=== PATIENT | female | born 1990 | race Caucasian/White ===

== ENCOUNTER 2016-08-13 16:34 | Emergency (ER) | payer SELFPAY | END 2016-08-13 18:10 | disposition left against medical advice (07) | LOC: E/R 16:34 | DX: Z53.21 Procedure and treatment not carried out due to patient leaving prior to being seen by health care provider (principal) ==

== ENCOUNTER 2016-09-12 22:12 | Emergency (ER) | payer MEDICAID ==
[~2016-09-12] VITALS: Wt 46.5 kg
--- NOTE | 2016-09-13 00:30 | ERA ---
ER Documentation Chief Complaint Date/Time DATE: 09/13/16 TIME: 00:29 Chief Complaint Vomiting and 9 weeks HPI Patient presents for nausea and vomiting 2 weeks. Patient is 9 weeks . Patient denies bleeding or discharge from the vagina, abdominal cramping or previous loss. YAAKOV Sotelo helped with the translation. ROS All systems reviewed and are negative except as per history of present illness. Allergies Allergies: Coded Allergies: No Known Allergy (Unverified , 09/12/16) PMhx/Soc Medical and Surgical Hx: pt denies Medical Hx History of Surgery: Yes (appendectomy) Hx Alcohol Use: No Hx Substance Use: No Hx Tobacco Use: No Smoking Status: Never smoker Physical Exam Vitals Vital Signs Date Time Temp Pulse Resp B/P Pulse Ox O2 Delivery O2 Flow Rate FiO2 09/12/16 22:24 98.9 91 18 110/54 98 Physical Exam Const: [] Head: Atraumatic Eyes: Normal Conjunctiva ENT: Normal External Ears, Nose and Mouth. Neck: Full range of motion..~ No meningismus. Resp: Clear to auscultation bilaterally Cardio: Regular rate and rhythm, no murmurs Abd: Soft, non tender, non distended. Normal bowel sounds Skin: No petechiae or rashes Back: No midline or flank tenderness Ext: No cyanosis, or edema Neur: Awake and alert Psych: Normal Mood and Affect Result Diagram: 09/13/16 0054 Results 24 hrs Laboratory Tests Test 09/13/16 00:39 09/13/16 00:54 Urine Color YELLOW Urine Clarity CLEAR Urine pH 6.0 Urine Specific [place] 1.025 Urine Ketones 3+ Urine Nitrite NEGATIVE Urine Bilirubin NEGATIVE Urine Urobilinogen 0.2 E.U./dL Urine Leukocyte Esterase NEGATIVE Urine Hemoglobin NEGATIVE Urine Glucose NEGATIVE% Urine Total Protein NEGATIVE White Blood Count 9.110^3/ul Red Blood Count 4.0710^6/ul Hemoglobin 12.4g/dl Hematocrit 36.0% Mean Corpuscular Volume 88.5fl Mean Corpuscular Hemoglobin 30.5pg Mean Corpuscular Hemoglobin Concent 34.4g/dl Red Cell Distribution Width 12.3% Platelet Count 06781^3/UL Mean Platelet Volume 10.6fl Neutrophils % 73.4% Lymphocytes % 17.8% Monocytes % 7.5% Eosinophils % 0.7% Basophils % 0.2% Nucleated Red Blood Cells % 0.0/100WBC Neutrophils # 6.710^3/ul Lymphocytes # 1.610^3/ul Monocytes # 0.710^3/ul Eosinophils # 0.110^3/ul Basophils # 0.010^3/ul Nucleated Red Blood Cells # 0.010^3/ul Beta HCG, Quantitative 439583.0mIU/ml Procedures/MDM Patient is presenting and being worked up for nausea and vomiting while 9 weeks . Patient's ultrasound was unremarkable showing a live intrauterine growth estimated at 10 weeks. Patient is stable and her condition is appropriate for discharge. At this time I do not suspect endangerment of the fetus. Most likely current diagnosis is hyperemesis gravidarum talk to my attending and he agrees with the assessment and plan. Patient will be discharged at this time. Patient will be discharged with Reglan. Have advised the patient to follow-up with [facility] in 2 levels. Was given handouts and laboratory values. Departure Diagnosis: Primary Impression: Hyperemesis gravidarum Additional Impressions: Vomiting Qualified Code: R11.10 - Vomiting, intractability of vomiting not specified, presence of nausea not specified, unspecified vomiting type Hyperemesis arising during Additional Instructions: Follow-up with [facility] in 2 days. BERNARDINO MOON PA-C September 13, 2016 00:30
[2016-09-13 01:05] LABS: ADD SCAN DIFF NO
[2016-09-13 01:06] LABS: BASOPHILS % 0.2 % (0.0-2.0); EOSINOPHILS # 0.1 10^3/ul (0.0-0.5); EOSINOPHILS % 0.7 % (0.0-7.0); HEMOGLOBIN 12.4 g/dl (12.0-16.0); LYMPHOCYTES # 1.6 10^3/ul (0.8-2.9); LYMPHOCYTES % 17.8 % (15.0-51.0); MEAN CORPUSCULAR HEMOGLOBIN 30.5 pg (29.0-33.0); MEAN CORPUSCULAR HGB CONC 34.4 g/dl (32.0-37.0); MEAN CORPUSCULAR VOLUME 88.5 fl (82.0-101.0); MEAN PLATELET VOLUME 10.6 fl (7.4-10.4); MONOCYTE # 0.7 10^3/ul (0.3-0.9); MONOCYTES % 7.5 % (0.0-11.0); NEUTROPHIL # 6.7 10^3/ul (1.6-7.5); NEUTROPHILS % 73.4 % (39.0-77.0); PLATELET COUNT 247 10^3/UL (140-415); RED BLOOD COUNT 4.07 10^6/ul (4.20-5.40); RED CELL DISTRIBUTION WIDTH 12.3 % (11.5-14.5); WHITE BLOOD COUNT 9.1 10^3/ul (4.8-10.8)
[2016-09-13 01:11] LABS: URINE BILIRUBIN (Dip) NEGATIVE (NEGATIVE); URINE BLOOD (Dip) NEGATIVE (NEGATIVE); URINE COLOR YELLOW (YELLOW); URINE GLUCOSE (Dip) NEGATIVE (NEGATIVE); URINE KETONES (Dip) 3+ (NEGATIVE); URINE LEUKOCYTE ESTERASE (Dip) NEGATIVE (NEGATIVE); URINE NITRITE (Dip) NEGATIVE (NEGATIVE); URINE UROBILINOGEN (Dip) 0.2 E.U./dL (0.1-1.0)
--- NOTE | 2016-09-13 01:18 | RADRPT ---
PROCEDURE: OB Ultrasound. CLINICAL INDICATION: Positive test. Vaginal bleeding. Pelvic pain. TECHNIQUE: Ultrasound of the pelvis was performed with transabdominal sonography in the axial and sagittal planes. COMPARISON: No prior study is available for comparison. FINDINGS: There is a single intrauterine gestational sac. pole and yolk sac are present. There is heart motion. heart rate is 150 beats per minute. Flora-rump length is 2.66 cm. Mean sac diameter is 4.85 cm. There is a small subchorionic hemorrhage measuring 0.9 cm in maximal d imension. Menstrual age by ultrasound dates is 10 weeks 2 days. This indicates an expected date of delivery of 04/05/2017. The right ovary appears normal measuring 1.7 x 3.2 x 2.7 cm. The left ovary appears normal measuring 2.6 x 2.0 x 1.4 cm. Color Doppler and pulsed Doppler sonography demonstrate normal flow to the ovaries. There is no other pelvic mass or free fluid. IMPRESSION: 1. Single live intrauterine gestation of 10 weeks 2 days menstrual age by ultrasound dates. 2. Expected date of delivery is 04/05/2017. RPTAT: QQ .Jeremiah Mnotiel MD, Date Time Electronically viewed and signed by .Jeremiah Montiel MD, on 09/13/2016 01:17 .R/
[2016-09-13 01:28] LABS: ADD UMIC NO; URINE TOTAL PROTEIN (Dip) NEGATIVE (NEGATIVE)
[2016-09-13] MEDS ORDERED: METO10TA92 PO (02:25)
[2016-09-13 02:35] VITALS: BP 112/54; PULSE 88; RESP 18; TEMP 98.9
== END 2016-09-13 02:46 | disposition home or self-care (01) ==
LOC: FTE 22:12
DX: O21.0 Mild hyperemesis gravidarum (principal); Z3A.10 10 weeks gestation of pregnancy
CPT/HCPCS: 36415; 76801; 81003; 84702; 85025; 86850; 86900; 86901; Z7502